=== PATIENT | female | born 1945 | race Caucasian/White ===

== ENCOUNTER 2021-03-29 08:52 | Day surgery (SDC) | payer OTHER ==
[2021-03-23 09:08] LABS: Absolute Lymphocytes (CBC) 1.6 K/uL (0.7-4.9); Basophils % 0.9 % (0-1.3); Hematocrit 42.6 % (36.0-45.0); Lymphocytes % 27.6 % (15.3-44.8); MPV 10.4 fL (7.6-11.3); RBC Red Blood Cell Count 4.74 M/uL (3.86-4.86)
[2021-03-23 09:21] LABS: Potassium 4.5 mmol/L (3.5-5.1)
[2021-03-29] MEDS ORDERED: CEFAZOLIN/SWI 1gm 1 GM/10 ML SYR ONE (09:21)
[2021-03-29] MEDS ORDERED: Ringers Lactate 1,000 ML IV ONE (09:21)
[2021-03-29] MEDS ORDERED: NS 0.9% VIAL 10 ML ONE (09:24)
[2021-03-29] MEDS ORDERED: LIDOCAINE 2% MPF 5 ML VIAL ONE (09:24)
[2021-03-29] MEDS ORDERED: MIDAZOLAM HCL 2 MG/2 ML INJ ONE ×2 (09:24→11:03)
[2021-03-29] MEDS ORDERED: propofoL 200 MG/20 ML VIAL IV ONE (09:24)
[2021-03-29] MEDS ORDERED: FENTANYL CITR 100 MCG/2 ML ONE ×2 (09:24→11:03)
[2021-03-29] MEDS ORDERED: ONDANSETRON 4 MG/2 ML VIAL ONE (09:25)
[2021-03-29] MEDS ORDERED: LIDOCAINE 1% MPF 30 ML VIAL ONE (09:26)
[2021-03-29] MEDS ORDERED: NS 0.9% VIAL 20 ML ONE (09:26)
[2021-03-29 09:29] VITALS: O2SAT 96
[2021-03-29] MEDS: BUPIVACAINE 0.25% PF 30 ML VIAL ONE ×2 (10:31→11:35)
[2021-03-29] MEDS ORDERED: ACETAMINOPHEN 500 MG TAB ONE (10:31)
[2021-03-29] MEDS ORDERED: CELECOXIB 100 MG CAPSULE ONE (10:31)
--- NOTE | 2021-03-29 12:08 | P.BOP ---
Preoperative diagnosis: left trigger thumb Postoperative diagnosis: same Primary procedure: left trigger thumb release Airframe Technician: NONE,NONE Estimated blood loss: 2 cc Specimen: none Findings: see dictation Anesthesia: General Complications: None Implants: none Fluids & blood products: per anesthesia record: TT: 34 mins @ 300 mmHg Transferred to: Recovery Room Condition: Good
[2021-03-29 12:47] VITALS: BP 136/64; TEMP 97.4
--- NOTE | 2021-03-30 01:03 | OP ---
Date of Procedure: 03/29/2021 Surgeon: Orion Grijalva MD Preoperative Diagnosis: Left thumb trigger digit. Postoperative Diagnosis: Left thumb trigger digit. Procedure Performed: Left thumb trigger digit release. Anesthesia: General with local. Fluids: Per Anesthesia record. Estimated Blood Loss: 2 cc. Tourniquet Time: 34 minutes at 300 mmHg. Indication For Procedure: Ana Rosa is a 75-year-old female who presents with pain. She has triggering of the left thumb and failure of conservative treatment measures with the left trigger thumb. The pa in interferes with her activities of daily living and she elects to proceed with operative treatment. Description Of Procedure: After informed consent was obtained, the patient was identified in the pre operative holding area. The left thumb was marked. Patient was then brought back to the operating r oom, transferred to the operating table in supine fashion and underwent Manito block anesthesia and ane sthesia stated the patient has some venous incompetence with the injection of the Manito block and at t hat point, it was elected for the patient to proceed to general anesthesia. The left upper extremity was then prepped and draped in usual sterile fashion. A time-out was initiated. The correct patien t and procedure confirmed and identified. The patient did receive preoperative prophylactic antibiot ics. Approximately 1 cm horizontal incision was made in line with the crease at the base of the thum b centered over the A1 wendy. Dissection was then taken down to the flexor tendon sheath was identi fied. The radial digital nerve was identified and gently retracted anteriorly. A 15-blade was then used to open the flexor tendon sheath of the thumb at the level of the A1 wendy. There was signific ant tenosynovial fluid that was expressed after opening the flexor tendon sheath. A small segment of the flexor tendon sheath was excised to minimize risk of recurrence. The entire A1 wendy was then released. The flexor tendon was then brought out through the incision using a Ragnell and has full e xcursion of the tendon without any triggering noted. The wound was then irrigated thoroughly with no rmal saline and skin was approximated with a 5-0 Prolene. Sterile dressings were applied and tourniq uet was let down. The patient awakened and transferred to PACU in stable condition. Postoperative Plan: She will begin working on range of motion exercises of the left thumb and follow up in 1 week for reevaluation and suture removal. CV/MODL Voice ID: [id number] Report ID: [id number]
== END 2021-03-29 12:38 | disposition home health service (06) ==
LOC: OR 08:52
PROVIDERS: ATTEND Orthopaedic Surgery Sports Medicine
PROC: 0LN80ZZ Release Left Hand Tendon, Open Approach (ICD-10-PCS; principal; 2021-03-29 10:45)
DX: M65.312 Trigger thumb, left thumb (principal); M25.542 Pain in joints of left hand; I10 Essential (primary) hypertension; M85.80 Other specified disorders of bone density and structure, unspecified site
CPT/HCPCS: 93005; 85025; 80048; 36415; 85610; 85730; 26055; J2704; J2250; J3010; J0690; J7120; J2405

== ENCOUNTER 2022-03-20 10:48 | Emergency (ER) | payer OTHER ==
--- NOTE | 2022-03-20 14:06 | RAD REPORT ---
EXAM DESCRIPTION: CT - Head Brain Wo Cont - 03/20/2022 1:59 pm CLINICAL HISTORY: Headache, new or worsening Headache, drowsiness COMPARISON: No comparisons TECHNIQUE: All CT scans are performed using dose optimization technique as appropriate and may inclu de automated exposure control or mA/KV adjustment according to patient size. FINDINGS: No intracranial hemorrhage, hydrocephalus or extra-axial fluid collection.Mild generalized brain atrophy.No areas of brain edema or evidence of midline shift. The paranasal sinuses and mastoids are clear. The calvarium is intact. IMPRESSION: No acute intracranial abnormality.
--- NOTE | 2022-03-20 14:37 | EDPHYS ---
Physician Documentation [facility] Name: Ana Rosa Mondragon Age: 76 yrs Sex: Female : 1945 Arrival Date: 03/20/2022 Time: 10:51 Bed 9 Private MD: Daniel Leyva ED Physician Almas Garcia HPI: 03/20 12:59 This 76 yrs old Female presents to ER via Ambulatory with complaints of Headache. pm1 12:59 The patient complains of pain to the right frontal area. The patient describes the pm1 headache as primarily a sensation of numbness with occasional pain behind her right eye. Onset: The symptoms/episode began/occurred 1 month(s) ago. Associated signs and symptoms: Pertinent positives: paresthesias, to the top of her left frontal area, Pertinent negatives: dizziness, fever, nausea, vomiting, weakness. Severity of symptoms: in the emergency department the pain has resolved. Headache History: Denies prior headaches. The symptoms are alleviated by nothing. the symptoms are aggravated by nothing. The patient has not experienced similar symptoms in the past. The patient has not recently seen a physician. 12:59 76 year old patient presents to the ER with complaints of headache to the top of her pm1 head on the right frontal area that is primarily described as numbness/tingling. Patient reports occasional pain behind her right eye. Pain comes and goes for the past 1 month. No pain present to her temples. Historical: - Allergies: 11:57 Sulfa (Sulfonamide Antibiotics); ap3 - PMHx: 11:57 Hypertensive disorder; ap3 - PSHx: 11:57 melanoma removal; bowel resection; ap3 - Immunization history:: Client reports receiving the 2nd dose of the Covid vaccine. - Social history:: Smoking status: Patient denies any tobacco usage or history of. Patient uses alcohol, occasionally. ROS: 12:59 Constitutional: Negative for fever, chills, and weight loss, Eyes: Negative for injury, pm1 pain, redness, and discharge, Cardiovascular: Negative for chest pain, palpitations, and edema, Respiratory: Negative for shortness of breath, cough, wheezing, and pleuritic chest pain, Abdomen/GI: Negative for abdominal pain, nausea, vomiting, diarrhea, and constipation, MS/Extremity: Negative for injury and deformity, Skin: Negative for injury, rash, and discoloration. 12:59 Neuro: Positive for headache, Negative for dizziness, weakness. 12:59 All other systems are negative. pm1 Exam: 12:59 Constitutional: This is a well developed, well nourished patient who is awake, alert, pm1 and in no acute distress. Head/Face: Normocephalic, atraumatic. 12:59 Skin: Warm, dry with normal turgor. Normal color with no rashes, no lesions, and no evidence of cellulitis. MS/ Extremity: Pulses equal, no cyanosis. Neurovascular intact. Full, normal range of motion. 12:59 Eyes: Exam is negative for acute changes, Extraocular movements: no acute changes, Conjunctiva: no acute changes, no injection. 12:59 ENT: Exam is negative for acute changes, Mouth: no acute changes, Lips: normal, moist, Oral mucosa: normal, pink and intact, moist. 12:59 Neck: Exam negative for acute changes, ROM/movement: no acute changes. 12:59 Cardiovascular: Exam negative for acute changes, Rate: normal, Rhythm: regular, Pulses: no pulse deficits are appreciated, Heart sounds: normal, normal S1and S2. 12:59 Respiratory: Exam negative for acute changes, respiratory distress, shortness of breath. 12:59 Neuro: Exam negative for acute changes, focal neuro deficits, Orientation: is normal, Mentation: is normal, Cranial nerves: CN II- XII are normal as tested, Cerebellar function: Romberg testing is negative, normal finger to nose testing, Motor: is normal, moves all fours, strength is 5/5 in all extremities, Sensation: no obvious gross deficits, Gait: is steady, at a normal pace, without difficulty. Vital Signs: 11:55 Pulse 71; Resp 17; Temp 98.1; Pulse Ox 97% ; Weight 72.57 kg; Height 5 ft. 2 in. ap3 (157.48 cm); 14:26 BP 145 / 80; Pulse 75; Resp 16; Temp 98.0(O); Pulse Ox 100% on R/A; Pain 5/10; eh3 11:55 Body Mass Index 29.26 (72.57 kg, 157.48 cm) ap3 MDM: 12:59 ED course: Patient refused medications for her headache. pm1 14:22 Differential diagnosis: cerebral vascular accident, intracerebral hemorrhage, migraine, pm1 temporal arteritis, tension headache, trigeminal neuralgia, occipital neuralgia. 14:35 Data reviewed: vital signs. Data interpreted: Pulse oximetry: on room air is 100 %. pm1 Interpretation: normal. Counseling: I had a detailed discussion with the patient and/or guardian regarding: the historical points, exam findings, and any diagnostic results supporting the discharge/admit diagnosis, radiology results, the need for outpatient follow up, a neurologist, to return to the emergency department if symptoms worsen or persist or if there are any questions or concerns that arise at home. 03/20 12:54 Order name: CT Head Brain wo Cont pm1 07 12:58 Order name: Head Brain Wo Cont; Complete Time: 14:22 EDMS Administered Medications: No medications were administered Disposition: 18:49 Co-signature as Attending Physician, Almas Garcia MD. rn Disposition Summary: 03/20/22 14:36 Discharge Ordered Location: Home pm1 Problem: new pm1 Symptoms: have improved pm1 Condition: Stable pm1 Diagnosis - Headache pm1 Followup: pm1 - With: Emergency Department - When: As needed - Reason: Worsening of condition Followup: pm1 - With: Rigo West MD - When: 2 - 3 days - Reason: Recheck today's complaints, Continuance of care, Re-evaluation by your physician Discharge Instructions: - Discharge Summary Sheet pm1 - General Headache Without Cause pm1 Forms: - Medication Reconciliation Form pm1 - Thank You Letter pm1 - Antibiotic Education pm1 - Prescription Opioid Use pm1 Signatures: Dispatcher [employer] EDMS Almas Garcia MD MD rn Marinas, Patrick, NP RN CARDIAC pm1 Melissa Nj RN RN ap3 Corrections: (The following items were deleted from the chart) 12:36 12:28 Patient medically screened. rn rn 14:30 12:59 76 year old patient presents to the ER with complaints of headache to the top of pm1 her head on the right frontal area that is primarily described as numbness. Patient reports occasional pain behind her right eye. Pain comes and goes for the past 1 month. No pain present to her temples. pm1 14:30 12:59 Neuro: Positive for headache, Negative for pm1 pm1
--- NOTE | 2022-03-20 14:37 | ER ---
Nurse's Notes [facility] Name: Ana Rosa Mondragon Age: 76 yrs Sex: Female : 1945 Arrival Date: 03/20/2022 Time: 10:51 Bed 9 Private MD: Daniel Leyva Diagnosis: Headache Presentation: 03/20 11:55 Chief complaint: Patient states: she has been having tingling and pain on the right ap3 side of her head, near behind her right eye for approx a month. Patient states the tingling is consistent, but the intensity will increase and decrease. Coronavirus screen: At this time, the client does not indicate any symptoms associated with coronavirus-19. Ebola Screen: No symptoms or risks identified at this time. Initial Sepsis Screen: Does the patient meet any 2 criteria? No. Patient's initial sepsis screen is negative. Does the patient have a suspected source of infection? No. Patient's initial sepsis screen is negative. Risk Assessment: Do you want to hurt yourself or someone else? Patient reports no desire to harm self or others. Onset of symptoms was February 2022. 11:55 Method Of Arrival: Ambulatory ap3 12:01 Acuity: GISELLE 3 ap3 Triage Assessment: 11:59 General: Appears in no apparent distress. Behavior is calm, cooperative. Pain: ap3 Complains of pain in head Pain currently is 3 out of 10 on a pain scale. at worst was 7 out of 10 on a pain scale. Quality of pain is described as tingling. 12:00 Headache History: Denies prior headaches. Pain: Pain began gradually, over the last ap3 month Also complains of no other associated symptoms. Neuro: Level of Consciousness is awake, alert, obeys commands, Oriented to person, place, time, situation, Speech is normal. Cardiovascular: Patient's skin is warm and dry. Respiratory: Airway is patent Respiratory effort is even, unlabored. Historical: - Allergies: 11:57 Sulfa (Sulfonamide Antibiotics); ap3 - PMHx: 11:57 Hypertensive disorder; ap3 - PSHx: 11:57 melanoma removal; bowel resection; ap3 - Immunization history:: Client reports receiving the 2nd dose of the Covid vaccine. - Social history:: Smoking status: Patient denies any tobacco usage or history of. Patient uses alcohol, occasionally. Screenin:59 Abuse screen: Denies threats or abuse. Nutritional screening: No deficits noted. ap3 Tuberculosis screening: No symptoms or risk factors identified. Fall Risk None identified. Assessment: 14:14 General: Appears in no apparent distress. comfortable, Behavior is calm, cooperative, eh3 appropriate for age. Pain: Complains of pain in top of head, left frontal area, left temporal area, right frontal area, right temporal area and right jainism Pain does not radiate. Pain currently is 5 out of 10 on a pain scale. at worst was 10 out of 10 on a pain scale. Quality of pain is described as dull, tender, tingling, numb, Pain began one month ago Is continuous, Also complains of fatigue for past 2-3 weeks. Neuro: Level of Consciousness is awake, alert, obeys commands, Oriented to person, place, time, situation. Cardiovascular: Capillary refill < 3 seconds Patient's skin is warm and dry. Respiratory: Airway is patent Respiratory effort is even, unlabored. GI: No signs and/or symptoms were reported involving the gastrointestinal system. : No signs and/or symptoms were reported regarding the genitourinary system. EENT: No signs and/or symptoms were reported regarding the EENT system. Derm: No signs and/or symptoms reported regarding the dermatologic system. Musculoskeletal: No signs and/or symptoms reported regarding the musculoskeletal system. Vital Signs: 11:55 Pulse 71; Resp 17; Temp 98.1; Pulse Ox 97% ; Weight 72.57 kg; Height 5 ft. 2 in. ap3 (157.48 cm); 14:26 BP 145 / 80; Pulse 75; Resp 16; Temp 98.0(O); Pulse Ox 100% on R/A; Pain 5/10; eh3 11:55 Body Mass Index 29.26 (72.57 kg, 157.48 cm) ap3 ED Course: 10:51 Patient arrived in ED. mr 10:51 Daniel Leyva DO is Private Physician. mr 11:59 Arm band placed on right wrist. ap3 12:02 Triage completed. ap3 12:28 Almas Garcia MD is Attending Physician. rn 12:40 [facility] pm1 12:40 Almas Garcia MD is Attending Physician. pm1 14:00 Head Brain Wo Cont In Process Unspecified. EDMS 14:02 Tanja Hassan, RN is Primary Nurse. ld1 14:14 Patient has correct armband on for positive identification. Bed in low position. Call eh3 light in reach. Side rails up X2. 14:36 Rigo West MD is Referral Physician. pm1 15:04 No provider procedures requiring assistance completed. ld1 15:05 Patient did not have IV access during this emergency room visit. ld1 Administered Medications: No medications were administered Medication: 15:05 VIS not applicable for this client. ld1 Outcome: 14:36 Discharge ordered by . pm1 15:04 Discharged to home ambulatory. ld1 15:04 Condition: stable 15:04 Discharge instructions given to patient, Instructed on discharge instructions, follow up and referral plans. Demonstrated understanding of instructions, follow-up care. 15:05 Patient left the ED. ld1 Signatures: Dispatcher [employer] EDDC DuarteAkosua Roman, MD MD rn Marinas, Patrick, MORTICIAN HELPER MORTICIAN HELPER pm1 Melissa Nj RN RN 3 Tanja Hassan, PATRICIA RN ld1 Blanca Peterson 3
[2022-03-20 15:38] VITALS: BP 145/80; TEMP 98; O2SAT 100
== END 2022-03-20 15:05 | disposition home or self-care (01) ==
LOC: ER 10:48
DX: G44.89 Other headache syndrome (principal); I10 Essential (primary) hypertension; Z88.2 Allergy status to sulfonamides
CPT/HCPCS: 70450; 99283

== ENCOUNTER 2025-06-17 08:00 | Day surgery (SDC) | payer OTHER ==
[2025-06-15 14:12] LABS: Absolute Lymphocytes (CBC) 2.0 K/uL (0.7-4.9); Hematocrit 40.5 % (36.0-45.0); Hemoglobin 13.3 g/dL (12.0-15.0); MCH 29.7 pg (27.0-35.0); MCHC 32.9 g/dL (32.0-36.0); MCV 90.2 fL (80-100); MPV 9.7 fL (7.6-11.3); Nucleated RBC Absolute Count 0.0 (0-0); Nucleated Red Blood Cells % 0.0 % (0-0); RBC Red Blood Cell Count 4.50 M/uL (3.86-4.86); White Blood Count 8.40 thou/uL (4.3-10.9)
[2025-06-15 14:21] LABS: PT Prothrombin Time 10.9 SECONDS (10-13.0); PTT, Activated Partial Thromb 30.3 SECONDS (27.2-37.4); Protime INR 0.96
--- NOTE | 2025-06-15 14:22 | RAD REPORT ---
EXAM: Chest Pa And Lat (2 Views) HISTORY: 79 years Female pre procedure COMPARISON: 05/30/2023 FINDINGS: LUNGS/PLEURA: The lungs are clear. No pleural effusions or pneumothorax. No pulmonary edema. CARDIAC/MEDIASTINUM: The cardiac silhouette is within normal limits. UPPER ABDOMEN: No significant abnormality. BONES: No acute abnormality. LINES/TUBES/OTHER: N/A IMPRESSION: No evidence of acute cardiopulmonary disease.
[2025-06-15 14:24] LABS: Anion Gap 8.1 mEq/L (5.0-15.0); BUN Blood Urea Nitrogen 24.0 mg/dL (7-18); Glucose Level 115.0 mg/dL (74-106); Potassium 4.1 mEq/L (3.5-5.1)
[2025-06-17] MEDS ORDERED: NA CHLORIDE 0.9% 500 ML ONE (08:19)
[2025-06-17 08:29] VITALS: TEMP 97.9
[2025-06-17] MEDS ORDERED: LIDOCAINE 1% 20 ML MDV ONE (08:31)
[2025-06-17] MEDS ORDERED: HEPARIN 5000 UNIT/ML 1 ML VIAL ONE (08:31)
[2025-06-17] MEDS ORDERED: HEPA 1000U/500MLS 2,000 UNIT/1,000 ML BAG IV ONE (08:31)
[2025-06-17] MEDS ORDERED: MIDAZOLAM HCL 2 MG/2 ML INJ ONE (08:38)
[2025-06-17] MEDS ORDERED: FENTANYL CITR 100 MCG/2 ML ONE (08:38)
[2025-06-17 10:37] VITALS: O2SAT 95
--- NOTE | 2025-06-17 10:59 | OP ---
Date of Procedure: 06/17/2025 Surgeon: Cliff Lane Procedure Performed: Selective coronary angiogram. Indication For Procedure: Abnormal stress test. Complications: None. Estimated Blood Loss: Less than 50 cc. Access: Right radial, closed by TR band. Sedation Time: 20 minutes with 1 of Versed and 25 of fentanyl. Description Of Procedure: After risks, benefits, and alternatives were explained to the patient, the patient agreed to proceed with procedure and signed informed consent. The patient was brought back to the propagator laborer, prepped and draped in sterile fashion. Time-out was performed. Sedation was admini stered. Next, right radial access was obtained using ultrasound-guided micropuncture technique. Tig er 4 catheter was advanced over a J-wire to the aortic root. Selective angiogram was done using same catheter. At the end of procedure, catheter was removed over a J-wire. Sheath was removed. TR ban d was applied. Hemostasis achieved and the patient was moved back to recovery in stable condition. Findings: 1. Left main, normal. 2. LAD, normal. 3. Left circ, normal. 4. RCA, normal. Assessment And Plan: 1. Normal coronaries. 2. Continue medical management. ANAYELI/ANITHA Voice ID: [id number] Report ID: [id number]
[2025-06-17 12:02] VITALS: BP 138/63
== END 2025-06-17 12:00 | disposition home or self-care (01) ==
LOC: CCL 08:00
PROVIDERS: ATTEND Internal Medicine Interventional Cardiology
DX: R94.39 Abnormal result of other cardiovascular function study (principal); R07.9 Chest pain, unspecified; I10 Essential (primary) hypertension; E78.2 Mixed hyperlipidemia; Z87.891 Personal history of nicotine dependence; Z79.899 Other long term (current) drug therapy; Z88.2 Allergy status to sulfonamides; Z82.49 Family history of ischemic heart disease and other diseases of the circulatory system
CPT/HCPCS: 93005; 85025; 80048; 36415; 85610; 85730; 71046; 93454; 76937; C1893; Q9966; J1644 ×2; J2003; J2250; J3010; J7040; 99152; 99153